=== PATIENT | male | born 2000 | race Caucasian/White ===

== ENCOUNTER 2019-11-08 20:19 | Emergency (ER) | payer MEDICAID ==
[~2019-11-08] VITALS: Ht 177.8 cm; Wt 98.9 kg
[2019-11-08 20:43] VITALS: BP 140/70
--- NOTE | 2019-11-08 20:47 | NUR ---
TO LOBBY A/W BED AMBULATORY
--- NOTE | 2019-11-08 21:01 | NUR ---
PT AMBULATED TO BED 03
--- NOTE | 2019-11-08 21:32 | NUR ---
19 Y/O MALE PRESENTS TO ED, C/O SORETHROAT ALONG WITH HEADACHE THAT STARTED YESTERDAY. PT STATES PAIN IS 8/10. PT STATES HAVING NAUSE AND DIARRHEA, DENIES VOMITING. BS ACTIVE X4 QUADRANTS. ABDOMEN SOFT AND NONTENDER. PT DENIES ANY CHEST PAIN. NO SOB/DIFFICUTLY BREATHING. PT TOOK TYLENOL YESTERDAY WITH LITTLE RELIEF. PT STABLE CONDITION. ERMD AWARE. WILL CONTINUE TO MONITOR.
[2019-11-08 22:37] VITALS: BP 121/55
--- NOTE | 2019-11-08 22:37 | NUR ---
PT DISCHARGED WITH PAPERWORK. EDUCATED PT REGARDING MEDICATIONS AND D/C INSTRUCTIONS. PT VERBALIZED WITH UNDERSTANDING. TOLD PT TO FOLLOW UP WITH PCP AND WHEN TO RETURN TO ED. PT AT STABLE CONDITION. ALL QUESTIONS ANSWERED.
== END 2019-11-08 22:37 | disposition home or self-care (01) ==
LOC: MED 20:19
DX: R19.7 Diarrhea, unspecified (principal)
CPT/HCPCS: 99283

== ENCOUNTER 2020-09-29 21:34 | Emergency (ER) | payer MEDICAID ==
[~2020-09-29] VITALS: Ht 175.3 cm; Wt 108.0 kg
[2020-09-29 21:45] VITALS: BP 128/87
--- NOTE | 2020-09-29 22:00 | NUR ---
PT AMBULATED TO TENT 02.
--- NOTE | 2020-09-29 22:05 | NUR ---
seen and examined by ermd in the tent.
[2020-09-29 22:13] VITALS: BP 128/87
--- NOTE | 2020-09-29 22:13 | NUR ---
Patient discharged with v/s stable. Written and verbal after care instructions given and explained. Patient alert, oriented and verbalized understanding of instructions. Ambulatory with steady gait. All questions addressed prior to discharge. ID band removed. Patient advised to follow up with PMD. Rx of compazine 10 mg, tylenol 650 mg given. Patient educated on indication of medication including possible reaction and side effects. Opportunity to ask questions provided and answered.
== END 2020-09-29 22:13 | disposition home or self-care (01) ==
LOC: MED 21:34
DX: R51.9 Headache, unspecified (principal); Z20.828 Contact with and (suspected) exposure to other viral communicable diseases
CPT/HCPCS: 99282

== ENCOUNTER 2020-11-08 21:22 | Emergency (ER) | payer MEDICAID ==
[~2020-11-08] VITALS: Ht 175.3 cm; Wt 111.1 kg
[2020-11-08 21:31] VITALS: BP 122/71
[2020-11-08 22:20] VITALS: BP 122/71
[2020-11-08] MEDS: ONDANSETRON 4 MG TAB PO ONE (22:32)
== END 2020-11-08 22:40 | disposition home or self-care (01) ==
LOC: MED 21:22
DX: A08.4 Viral intestinal infection, unspecified (principal)
CPT/HCPCS: 99283; Q0162

== ENCOUNTER 2020-11-12 21:34 | Emergency (ER) | payer MEDICAID ==
[~2020-11-12] VITALS: Ht 175.3 cm; Wt 110.2 kg
[2020-11-12 21:45] VITALS: BP 145/90
--- NOTE | 2020-11-12 21:48 | NUR ---
TO LOBBY A/W BED AMBULATORY
--- NOTE | 2020-11-12 22:46 | NUR ---
PT SEEN AND EVALUATED BY YESSI PETERSON. NO NURSING CARE PROVIDED.
--- NOTE | 2020-11-13 00:20 | NUR ---
Patient discharged with v/s stable. Written and verbal after care instructions given and explained. Patient alert, oriented and verbalized understanding of instructions. Ambulatory with steady gait. All questions addressed prior to discharge. ID band removed. Patient advised to follow up with PMD. Rx of MOTRIN, ZOFRAN, CIPRO given. Patient educated on indication of medication including possible reaction and side effects. Opportunity to ask questions provided and answered.
== END 2020-11-13 00:20 | disposition home or self-care (01) ==
LOC: MED 21:34
DX: R11.2 Nausea with vomiting, unspecified (principal); R19.7 Diarrhea, unspecified; R10.32 Left lower quadrant pain
CPT/HCPCS: 99283

== ENCOUNTER 2020-12-15 17:29 | Emergency (ER) | payer MEDICAID ==
[~2020-12-15] VITALS: Ht 175.3 cm; Wt 90.7 kg
[2020-12-15 17:39] VITALS: BP 145/82
[2020-12-15 18:13] VITALS: BP 145/82
== END 2020-12-15 18:10 | disposition home or self-care (01) ==
LOC: MED 17:29
DX: R09.89 Other specified symptoms and signs involving the circulatory and respiratory systems (principal); R06.7 Sneezing; Z00.01 Encounter for general adult medical examination with abnormal findings
CPT/HCPCS: 99281

== ENCOUNTER 2021-01-01 18:56 | Emergency (ER) | payer MEDICAID ==
[~2021-01-01] VITALS: Ht 177.8 cm; Wt 108.4 kg
[2021-01-01 19:13] VITALS: BP 137/60
--- NOTE | 2021-01-01 19:49 | NUR ---
PT TO ED BED 8 W/ STEADY GAIT
--- NOTE | 2021-01-01 20:00 | NUR ---
20 Y/O MALE PRESENTED TO ED C/O LETHARGY AND HEADACHE 04/19 WELL BURNING EYES 06/19. PT ALSO STATES HE HAS A DRY COUGH WITH A SORE THROAT, +NAUSEA, NO APPETITE. DENIES VOMITING, FEVER, SOB, DIARRHEA. PT STATED THAT HE HAD COVID 4 MONTHS AGO. NO ACUTE DISTRESS NOTED. DENIES TAKING ANY OTC MEDICATION. PMH: DENIES NKA
--- NOTE | 2021-01-01 21:00 | NUR ---
PCR SWAB COLLECTED-[facility] CALLED TO COME PICK IT UP
[2021-01-01 21:05] VITALS: BP 137/60
== END 2021-01-01 21:05 | disposition home or self-care (01) ==
LOC: MED 18:56
DX: J02.9 Acute pharyngitis, unspecified (principal); Z20.822 Contact with and (suspected) exposure to COVID-19
CPT/HCPCS: 99283; U0003

== ENCOUNTER 2021-01-05 15:50 | Emergency (ER) | payer MEDICAID ==
[~2021-01-05] VITALS: Ht 177.8 cm; Wt 111.1 kg
[2021-01-05 15:53] VITALS: BP 137/76
--- NOTE | 2021-01-05 16:01 | NUR ---
20 YO M BIB SELF FOR C/C FO 05/19 HEADACHE. PT WAS SEEN HERE ON FRIDAY THIS WEEK FOR C/C OF SORE THROAT. PT WAS DX WITH STREP THROAT AND GIVEN RX OF AMOXICILLIN. PT HAS BEEN TAKING MEDS AND OBTAINED RELIEF OF SORE THROAT BUT IS STILL EXPERIENCING MORALES. PT ALSO GOT NOVEL COVID TEST ON FRIDAY AND RESULTS ARE NEGATIVE. PT STATES HE TOOK UNKNOWN ML OF DAYQUIL WITH NO RELIEF. BED LOCKED AND IN LOWEST POSITION. SIDE RAILS X1. MED HX: DENIES
--- NOTE | 2021-01-05 16:21 | NUR ---
DALILA SENTO AT PT BEDSIDE FOR FURTHER EVALUATION.
[2021-01-05] MEDS ORDERED: KETOROLAC 30 MG/ML VIAL IM ONE (16:35)
[2021-01-05] MEDS ORDERED: ACETAMINOPHEN 325 MG TAB PO ONE (16:40)
[2021-01-05] MEDS ORDERED: ACET-1194 PO (16:43)
[2021-01-05] MEDS ORDERED: IMO2 PO (16:43)
[2021-01-05 16:51] VITALS: BP 137/76
--- NOTE | 2021-01-05 16:51 | NUR ---
Patient discharged with v/s stable. Written and verbal after care instructions given and explained. Patient alert, oriented and verbalized understanding of instructions. Ambulatory with steady gait. All questions addressed prior to discharge. ID band removed. Patient advised to follow up with PMD. Rx of ACETAMINOPHEN 500MG PO Q6H PRN PAIN, AND LOPERAMIDE 2MG PO Q8H PRN LOOSE STOOLS given. Patient educated on indication of medication including possible reaction and side effects. Opportunity to ask questions provided and answered.
== END 2021-01-05 16:51 | disposition home or self-care (01) ==
LOC: MED 15:50
DX: R51.9 Headache, unspecified (principal); B34.9 Viral infection, unspecified; R03.0 Elevated blood-pressure reading, without diagnosis of hypertension; R19.7 Diarrhea, unspecified
CPT/HCPCS: 99282; J1885